=== PATIENT | female | born 1960 | race African-American/Black ===

== ENCOUNTER → 2018-04-23 | Outpatient (CLI) | payer OTHER ==
[~2018-04-23] MED LIST: AVAPRO300 MG PO; BENTYL 10 MG CA10 M1 PO; CARVEDILOL3.125 MG PO; COQ-10100 MG PO; FLOMAX0.4 MG PO; SPIRONOLACTONE25 M1 PO; VITAMIN B122500 MCG PO; VITAMIN D3400 UNIT PO; ZOFRAN ODT4 MG PO
--- NOTE | ~2018-04-23 | 2DMMODE ---
[facility] [place] [address] 2 D/M-MODE ECHOCARDIOGRAM Name: SABI KRAMER Room #: [facility] [id number] Admission: 04/23/18 Attend Phys: Chalino Rivas Discharge: Date of : 56 Date of Service: 04/23/18 1256 Report #: [id number] THIS REPORT FOR: //name// APPROVED REPORT Study performed: 04/23/2018 10:28:47 EXAM: Comprehensive 2D, Doppler, and color-flow Echocardiogram Patient Location: Out-Patient Room #: Echo lab 2 Status: routine BSA: 2.57 HR: 64 bpm BP: 118/72 mmHg Rhythm: NSR Other Information Study Quality: Adequate Indications Arrhythmia Hypertension/HDD SVT Echo Enhancing Agent Indication: Endocardial border delineation Agent(s) / Amount(s) Used: Optison 5 cc 2D Dimensions IVSd: 14.69 (7-11mm) LVOT Diam: 22.40 (18-24mm) LVDd: 61.55 mm PWd: 11.00 (7-11mm) LVDs: 52.88 (25-40mm) Aortic Root: 32.50 mm Aortic Valve AoV Peak Dano.: 0.99 m/s AO Peak Gr.: 3.92 mmHg LVOT Max P.20 mmHg LVOT Max V: 0.74 m/s KANIKA Vmax: 2.95 cm2 Mitral Valve E/A Ratio: 1.3 MV Decel. Time: 248.13 ms [facility] [place] [place] [address] 2 D/M-MODE ECHOCARDIOGRAM Name: SABI KRAMER Room #: REG Shana.#: [id number] Admission: 04/23/18 Attend Phys: [facility]ino [facility] Discharge: Date of : 56 Date of Service: 04/23/18 1256 Report #: [id number] E Max Dano.: 0.91 m/s MV A Dano.: 0.70 m/s MV PHT: 71.96 ms IVRT: 161.48 ms Tricuspid Valve TR Peak Dano.: 2.46 m/s TR Peak Gr.: 24.16 mmHg PA Pressure: 24.00 mmHg Left Ventricle Left ventricle is dilated. There is global hypokinesis of the left ventricle. Mild to moderate concentric left ventricular hypertrophy. Left ventricular systolic function is mildly decreased. LVEF is 40-45%. This study is not technically sufficient to allow evaluation of the LV diastolic function. Right Ventricle Right ventricle is not well visualized. The right ventricular systolic function is normal. Atria Left atrium is dilated. Right atrium is not well visualized. Aortic Valve Aortic valve is not well visualized. No aortic regurgitation is present. There is no aortic valvular stenosis. Mitral Valve The mitral valve is normal in structure. Mild mitral regurgitation. No evidence of mitral valve stenosis. Tricuspid Valve The tricuspid valve is normal in structure. There is trace tricuspid regurgitation. Esstimated PAP 24 mmHg plus the right atrial pressure There is no pulmonary hypertension. Pulmonic Valve Pulmonic valve is not well visualized. There is no pulmonic valvular regurgitation. Great Vessels The aortic root is normal in size. IVC is not well visualized. Pericardium [facility] [address] [address] 2 D/M-MODE ECHOCARDIOGRAM Name: SABI KRAMER Room #: [facility] Yajaira#: [id number] Admission: 04/23/18 Attend Phys: Chalino Rivas Discharge: Date of : 56 Date of Service: 04/23/18 1256 Report #: [id number] There is no pericardial effusion. <Conclusion> Left ventricle is dilated. There is global hypokinesis of the left ventricle. LVEF is 40-45%. Left atrium is dilated. Aortic valve is not well visualized. The mitral valve is normal in structure. Mild mitral regurgitation. The tricuspid valve is normal in structure. There is trace tricuspid regurgitation. Esstimated PAP 24 mmHg plus the right atrial pressure There is no pulmonary hypertension. Pulmonic valve is not well visualized. The aortic root is normal in size. There is no pericardial effusion. <ELECTRONICALLY SIGNED> By: Jude Delcid MD 04/23/18 1256 1256 1256 Jude Delicd MD /INF
== END ==
LOC: CV 10:06
DX: I34.0 Nonrheumatic mitral (valve) insufficiency (principal); I10 Essential (primary) hypertension; I47.1 Supraventricular tachycardia; I49.9 Cardiac arrhythmia, unspecified

== ENCOUNTER → 2018-04-24 | Outpatient (CLI) | payer OTHER | LOC: HYPER 06:38 | DX: L73.2 Hidradenitis suppurativa (principal); E11.39 Type 2 diabetes mellitus with other diabetic ophthalmic complication; H40.9 Unspecified glaucoma; E66.9 Obesity, unspecified; G47.33 Obstructive sleep apnea (adult) (pediatric); G56.02 Carpal tunnel syndrome, left upper limb; I10 Essential (primary) hypertension; J45.909 Unspecified asthma, uncomplicated; K21.9 Gastro-esophageal reflux disease without esophagitis; Z90.710 Acquired absence of both cervix and uterus; Z87.891 Personal history of nicotine dependence; Z68.42 Body mass index [BMI] 45.0-49.9, adult ==

== ENCOUNTER 2018-10-05 15:59 | Emergency (ER) | payer OTHER ==
[~2018-10-05] VITALS: Ht 175.3 cm; Wt 149.7 kg
[2018-10-05] MEDS ORDERED: MOBIC7.5 MG PO (17:30)
[2018-10-05 18:18] VITALS: BP 156/88
== END 2018-10-05 18:10 | disposition home or self-care (01) ==
LOC: ER 15:59
DX: S80.01XA Contusion of right knee, initial encounter (principal); S80.212A Abrasion, left knee, initial encounter; M79.672 Pain in left foot; E11.9 Type 2 diabetes mellitus without complications; I10 Essential (primary) hypertension; Z88.0 Allergy status to penicillin; Z88.5 Allergy status to narcotic agent; W10.9XXA Fall (on) (from) unspecified stairs and steps, initial encounter; Y93.89 Activity, other specified; Y92.89 Other specified places as the place of occurrence of the external cause; Y99.8 Other external cause status

== ENCOUNTER 2019-01-04 02:45 | Emergency (ER) | payer OTHER ==
[~2019-01-04] VITALS: Ht 175.3 cm; Wt 136.1 kg
[~2019-01-04 02:45] MED LIST changes: +MOBIC7.5 MG PO
[2019-01-04 03:33] LABS: BASOPHILS 0.7 % (0.0-2.0); EOSINOPHILS 1.8 % (0.0-3.0); HEMATOCRIT 36.5 % (37.0-47.0); HEMOGLOBIN 11.9 gm/dL (12.0-15.0); LYMPHOCYTES 30.8 % (24.0-44.0); MCH 26.8 pg (26.0-34.0); MCHC 32.5 g/dL (28.0-37.0); MCV 82.4 fL (80.0-100.0); MONOCYTES 7.2 % (1.0-8.0); PLATELET COUNT 190 thou/uL (150-400); POLYS 59.5 % (36.0-66.0); RBC 4.44 mil/uL (4.20-5.00); RDW 13.8 % (10.5-14.5); WBC 8.4 thou/uL (4.0-11.0)
[2019-01-04 03:40] VITALS: BP 143/65
[2019-01-04 03:54] LABS: ANION GAP 8 mmol/L (7-16); BUN 17 mg/dL (7-18); CALCIUM 8.8 mg/dL (8.5-10.1); CHLORIDE 100 mmol/L (98-107); CO2 28 mmol/L (21-32); CREATININE 1.1 mg/dL (0.6-1.0); GLUCOSE 324 mg/dL (74-106); POTASSIUM 4.1 mmol/L (3.5-5.1); SODIUM 136 mmol/L (136-145)
[2019-01-04 04:04] LABS: ALBUMIN 3.4 g/dL (3.4-5.0); MAGNESIUM 1.6 mg/dL (1.8-2.4); SGOT 8 U/L (15-37); SGPT 18 U/L (30-65); TOTAL BILIRUBIN 0.4 mg/dL (<0.1-1.0); TOTAL PROTEIN 7.8 g/dL (6.4-8.2); TROPONIN-I <0.06 ng/mL (<0.06)
--- NOTE | 2019-01-05 13:40 | EKG ---
[place] [address] [employer] [place] [address] ELECTROCARDIOGRAM REPORT Name: SABI KRAMER [facility] [id number] ������������������ Admission: 01/04/19 ������������������ Attend Phys: Discharge: 01/04/19 ������������������ Date of : 56 Report #: [id number] ����������������������������������������������������������������� [id number] THIS REPORT FOR: //name// [facility] ED Test Date: 2019-01-04 Test Time: 03:05:55 Pat Name: SABI KRAMER Department: Room: Gender: F Judicial Law Clerk: FLORESITA : 1960 Requested By: Mac Chew Order Number: [id number] MD: Jeremy Jaramillo Measurements Intervals [place] Rate: 70 P: 62 LA: 163 QRS: 1 QRSD: 110 T: 12 QT: 409 QTc: 442 Interpretive Statements Sinus rhythm Normal tracing Compared to ECG 03/15/2018 10:22:51 No significant changes Electronically Signed On 01-05-2019 13:40:21 CDT by Jeremy Jaramillo [email or web address] ��������������������������������������������� <ELECTRONICALLY SIGNED> ���������������������������������������� By: Jeremy Jaramillo MD, [facility] ��������������������������������������������� 01/05/19 1340 0305 0305 Jeremy Jaramillo MD, FACC /EPI
== END 2019-01-04 03:53 | disposition home or self-care (01) ==
LOC: ER 02:45
PROVIDERS: Emergency Medicine
DX: S61.211A Laceration without foreign body of left index finger without damage to nail, initial encounter (principal); R07.89 Other chest pain; M79.644 Pain in right finger(s); I10 Essential (primary) hypertension; E11.9 Type 2 diabetes mellitus without complications; Z88.5 Allergy status to narcotic agent; Z88.0 Allergy status to penicillin; Z88.8 Allergy status to other drugs, medicaments and biological substances; W26.8XXA Contact with other sharp object(s), not elsewhere classified, initial encounter; Y92.89 Other specified places as the place of occurrence of the external cause; Y93.89 Activity, other specified; Y99.8 Other external cause status

== ENCOUNTER 2019-05-06 15:42 | Emergency (ER) | payer OTHER ==
[~2019-05-06] VITALS: Ht 175.3 cm; Wt 136.1 kg
[2019-05-06 16:01] LABS: URINE BILIRUBIN NEGATIVE (Negative); URINE BLOOD NEGATIVE (Negative); URINE CLARITY CLEAR; URINE COLOR YELLOW; URINE GLUCOSE-RANDOM* 3+ (Negative); URINE KETONES NEGATIVE (Negative); URINE LEUKOCYTES-REFLEX NEGATIVE (Negative); URINE NITRITE-REFLEX NEGATIVE (Negative); URINE PROTEIN (DIPSTICK) NEGATIVE (Negative); URINE SPECIFIC GRAVITY >= 1.030 (1.005-1.035); URINE UROBILINOGEN 0.2 E.U./dl (0.2-1.0)
[2019-05-06 16:23] LABS: ABSOLUTE NEUTROPHILS 5.2 thou/uL (1.4-8.2); BASOPHILS 1.4 % (0.0-2.0); EOSINOPHILS 1.1 % (0.0-3.0); HEMATOCRIT 39.1 % (37.0-47.0); HEMOGLOBIN 12.5 gm/dL (12.0-15.0); LYMPHOCYTES 32.1 % (24.0-44.0); MCH 26.8 pg (26.0-34.0); MCHC 32.1 g/dL (28.0-37.0); MCV 83.7 fL (80.0-100.0); MONOCYTES 7.2 % (1.0-8.0); PLATELET COUNT 204 thou/uL (150-400); POLYS 58.2 % (36.0-66.0); RBC 4.67 mil/uL (4.20-5.00)
[2019-05-06 16:32] LABS: CALCIUM 10.1 mg/dL (8.5-10.1); CREATININE 1.1 mg/dL (0.6-1.0)
[2019-05-06 16:40] LABS: ALBUMIN 3.7 g/dL (3.4-5.0); TOTAL BILIRUBIN 0.5 mg/dL (<0.1-1.0); TOTAL PROTEIN 8.4 g/dL (6.4-8.2)
[2019-05-06] MEDS ORDERED: LEVSIN0.125 MG PO (18:13)
[2019-05-06] MEDS ORDERED: CITRATE OF MAG296 ML PO (18:13)
[2019-05-06 18:23] VITALS: BP 144/66
== END 2019-05-06 18:26 | disposition home or self-care (01) ==
LOC: ER 15:42
PROVIDERS: Emergency Medicine
DX: K59.00 Constipation, unspecified (principal); R10.32 Left lower quadrant pain; R42 Dizziness and giddiness; I10 Essential (primary) hypertension; E11.9 Type 2 diabetes mellitus without complications; M54.5 Low back pain; Z88.0 Allergy status to penicillin; Z88.6 Allergy status to analgesic agent; Z88.8 Allergy status to other drugs, medicaments and biological substances

== ENCOUNTER 2020-10-05 22:00 | Emergency (ER) | payer MEDICARE ==
[~2020-10-05] VITALS: Ht 175.3 cm; Wt 136.1 kg
[~2020-10-05 22:00] MED LIST changes: +CITRATE OF MAG296 ML PO; +LEVSIN0.125 MG PO
[2020-10-05] MEDS ORDERED: MIRALAX119 GM PO (23:29)
[2020-10-05 23:34] VITALS: BP 136/76
== END 2020-10-05 23:35 | disposition home or self-care (01) ==
LOC: ER 22:00
DX: K59.00 Constipation, unspecified (principal); E11.9 Type 2 diabetes mellitus without complications; I10 Essential (primary) hypertension; Z79.899 Other long term (current) drug therapy; Z88.5 Allergy status to narcotic agent; Z88.0 Allergy status to penicillin; Z88.6 Allergy status to analgesic agent; Z88.8 Allergy status to other drugs, medicaments and biological substances

== ENCOUNTER 2021-05-29 18:15 | Emergency (ER) | payer MEDICARE ==
[~2021-05-29] VITALS: Ht 175.3 cm; Wt 156.0 kg
[~2021-05-29 18:15] MED LIST changes: +MIRALAX119 GM PO
[2021-05-29 18:17] VITALS: BP 121/51
[2021-05-29 20:26] LABS: ABSOLUTE NEUTROPHILS 10.3 thou/uL (1.4-8.2); BASOPHILS 0.5 % (0.0-2.0); EOSINOPHILS 0.3 % (0.0-3.0); HEMATOCRIT 35.6 % (37.0-47.0); HEMOGLOBIN 11.4 gm/dL (12.0-15.0); LYMPHOCYTES 12.3 % (24.0-44.0); MCH 26.9 pg (26.0-34.0); MCHC 31.9 g/dL (28.0-37.0); MCV 84.2 fL (80.0-100.0); MONOCYTES 2.3 % (1.0-8.0); PLATELET COUNT 219 thou/uL (150-400); POLYS 84.6 % (36.0-66.0); RBC 4.23 mil/uL (4.20-5.00); RDW 14.6 % (10.5-14.5); WBC 12.2 thou/uL (4.0-11.0)
[2021-05-29 20:46] LABS: CALCIUM 9.1 mg/dL (8.5-10.1); CREATININE 1.1 mg/dL (0.6-1.0); POTASSIUM 4.1 mmol/L (3.5-5.1)
[2021-05-29 20:54] LABS: ALBUMIN 3.3 g/dL (3.4-5.0); TOTAL BILIRUBIN 0.7 mg/dL (0.2-1.0); TOTAL PROTEIN 7.9 g/dL (6.4-8.2)
--- NOTE | 2021-05-31 07:12 | EKG ---
[place] [address] [place] [address] ELECTROCARDIOGRAM REPORT Name: SABI KRAMER [facility] [id number] Admission: 05/29/21 Attend Phys: Discharge: 05/29/21 Date of : 56 Report #: [id number] [facility] ED Test Date: 2021-05-29 Test Time: 18:31:35 Pat Name: SABI KRAMER Department: Room: Gender: F Recreational Resort Manager: GIOVANA : 1960 Requested By: Ian Keyes Order Number: [id number] MD: Mamadou Murry Measurements Intervals [place] Rate: 64 P: 70 AR: 163 QRS: 9 QRSD: 110 T: 32 QT: 413 QTc: 426 Interpretive Statements Sinus rhythm Multiple ventricular premature complexes Compared to ECG 01/04/2019 03:05:55 Ventricular premature complex(es) now present Electronically Signed On 05-31-2021 7:12:06 SALES DEVELOPMENT COORDINATOR by Mamadou Murry [email or web address] <ELECTRONICALLY SIGNED> By: Mamadou Murry MD, [facility] 05/31/21 0712 30 30 Mamadou Murry MD, FACC /EPI
== END 2021-05-29 22:53 | disposition home or self-care (01) ==
LOC: ER 18:15
PROVIDERS: Emergency Medicine
DX: K56.41 Fecal impaction (principal); I10 Essential (primary) hypertension; E11.9 Type 2 diabetes mellitus without complications; Z79.1 Long term (current) use of non-steroidal anti-inflammatories (NSAID); Z79.891 Long term (current) use of opiate analgesic; Z79.899 Other long term (current) drug therapy; Z88.6 Allergy status to analgesic agent; Z88.0 Allergy status to penicillin; Z88.5 Allergy status to narcotic agent; Z91.041 Radiographic dye allergy status